=== PATIENT | female | born 1960 | race Caucasian/White ===

== ENCOUNTER 2023-06-23 17:52 | Inpatient (IN) | payer MEDICARE, OTHER, SELFPAY ==
[2023-06-23 17:57] VITALS: BP 161/74; PULSE 90; RESP 15; O2SAT 98
--- NOTE | 2023-06-23 18:01 | XRR_ITS ---
PROCEDURE INFORMATION: Exam: XR Abdomen Exam date and time: 06/23/2023 7:10 PM Age: 62 years old Clinical indication: Abdominal tenderness and nausea and vomiting; Patient HX: Ruq pain; N/v TECHNIQUE: Imaging protocol: Radiologic exam of the abdomen. Views: Frontal supine view of the abdomen. 1 View. COMPARISON: No relevant prior studies available. FINDINGS: Gastrointestinal tract: Normal. No bowel dilation. Bones/joints: Unremarkable. XR/XR abdomen 1V* [id number] IMPRESSION: Nonobstructive bowel-gas pattern.
--- NOTE | 2023-06-23 18:02 | ED_ITS ---
HPI - Abdominal Pain 2 General: Chief Complaint: Abdominal Pain Stated Complaint: abd pain Time Seen by Provider: 06/23/23 18:00 History of Present Illness: 62-year-old female presents emergency de partment with complaints of right upper quadrant abdominal pain with nausea. She states her pain started suddenly and was 10 out of 10 sharp and stabbing. She states this has occurred on 2 other occasions approximately 30 minutes after eating. She denies chest pain or shortness of breath. She states she was scheduled to have it evaluated tomorrow but the pain became so intense that she was unable to tolerate it and presented to the emergency department this evening. Associated Symptoms: Reports nausea Review of Systems 2 General: Reports: 10 or more systems reviewed and unremarkable except in HPI and below GI: Reports: abdominal pain and nausea Physical Exam 2 Narrative: EXAM NARRATIVE: Constitutional: the patient appears well nourished and with normal development. Vital signs reviewed as documented. HENMT: Normocephalic, atraumatic. Extermal ears with normal appearance without drainage. Nose without drainage, normal appearance. Mucus membranes moist. Neck is supple, No jugular venous distension, trachea is midline, no appreciable carotid bruits. No lymphadenopathy. No meningeal signs. Flexion, extension and lateral rotation is without pain. Eyes: Pupils are equal, round, reactive to light and accommodation. No scleral icterus. Extra-ocular movement are intact. Thorax is symmetrical and with equal rise and fall with respirations. Resp: Lungs are clear to auscultation. No wheezes, rales, crackles or ronchi at present. Cardio: Regular rate and rhythm. Positive S1, S2. No appreciable murmurs, rubs or gallops. GI: Abdominal exam reveals normal bowel sounds to all quadrants. No organomegaly. No obvious palpable masses noted. No hepatomegally appreciated. Soft, tender to palpation to the right upper quadrant Extremity: Extremities are non-edematous and both femoral and pedal pulses are 2+ and equal bilaterally. Moves all extremities well, sensation in all extremities. Neuro: Alert and oriented x4, person, place, time and situation. Cranial nerves II through XII are grossly intact, there is no focal neurological deficits that I can appreciate at present. Motor strength in the upper and lower extremities are equal and bilateral 5/5. Psych: Cooperative, calm, normal thought process, appropriate judgment. Skin: No lesions, rashes. No gross abnormalities noted. Back: Symmetrical, no obvious deformity, No CVA tenderness Course 2 Vital Signs: Vital signs: Vital Signs Pulse Rate 67 06/23/23 22:03 Respiratory Rate 16 06/23/23 22:03 Blood Pressure 161/74 06/23/23 17:57 Pulse Oximetry 98 06/23/23 22:03 Oxygen Delivery Me thod Room Air 06/23/23 17:57 MDM - Abdominal Pain Medical Decision Making Physical exam completed and documented, I will obtain laboratory evaluation to include a CBC, CMP, lipase, urinalysis, and a CT scan of the patient's abdomen pelvis to evaluate for possible differential diagnosis of bowel obstruction, incarcerated hernia, abdominal wall strain, abdominal wall hematoma, constipation. I will provide the patient IV access and IV fluid as well as a CT scan abdomen pelvis with contrast for evaluation for possible colitis, acute appendicitis, diverticulitis. I will provide IV antibiotics and consult surgery after reviewing her CT scan as it does appear she has acute cholecystitis Medical Records I reviewed the patient's medical records. Lab Data I reviewed the patient's lab results. 06/23/23 18:20 06/23/23 18:20 Labs/Radiology: Radiology Impressions Abdomen X-Ray 06/23/23 18:01 IMPRESSION: Nonobstructive bowel-gas pattern. Abdomen/Pelvis CT 06/23/23 22:31 IMPRESSION: 1. Gallbladder wall thickening with no gallbladder stones identified. Findings can be seen in the setting acute cholecystitis. Consider right upper quadrant ultrasound for further evaluation. 2. Complex 2.2 cm cystic structure in the inferior pole of the right kidney which is incompletely assessed on this examination. Consider three-phase renal CT or renal MRI for further evaluation. 3. No bowel obstruction or inflammatory process associated with the bowel. 4. No free air or significant free fluid in the abdomen or pelvis. 5. The appendix images normally. Laboratory Results WBC 8.61 10^3/uL (3.29-11.43) 06/23/23 18:20 RBC 4.88 10^6/uL (3.85-5.65) 06/23/23 18:20 Hgb 15.30 g/dL (11.27-16.99) 06/23/23 18:20 Hct 47.8 % (36-47) H 06/23/23 18:20 MCV 98.0 fl (85-98) 12/17/23 18:20 MCH 31.4 pg (27-33) 06/23/23 18:20 MCHC 32.0 g/dL (30-55) 06/23/23 18:20 RDW 13.5 % (12.1-15.1) 06/23/23 18:20 Plt Count 173 10^3/cmm (157-399) 06/23/23 18:20 MPV 10.6 fL (7.4-10.4) H 06/23/23 18:20 Neut % (Auto) 77.8 % 06/23/23 18:20 Lymph % (Auto) 13.5 % 06/23/23 18:20 [place] % (Auto) 7.7 % 06/23/23 18:20 Eos % (Auto) 0.5 % 06/23/23 18:20 Baso % (Auto) 0.2 % 06/23/23 18:20 Neut # (Auto) 6.70 10^3/uL (1.8-7.7) 06/23/23 18:20 Lymph # (Auto) 1.2 10^3/uL (0.8-4.8) 06/23/23 18:20 [place] # (Auto) 0.7 10^3/uL (0.2-0.9) 06/23/23 18:20 Eos # (Auto) 0.0 10^3/uL (0.0-0.8) 06/23/23 18:20 Baso # (Auto) 0.0 10^3/uL (0.0-0.1) 06/23/23 18:20 Nucleated RBC % (auto) 0 % 06/23/23 18:20 Nucleated RBCs # 0.0 /100WBC 06/23/23 18:20 Sodium 138 mmol/L (136-145) 06/23/23 18:20 Potassium 3.5 mmol/L (3.5-5.1) 06/23/23 18:20 Chloride 101 mmol/L (98-107) 06/23/23 18:20 Carbon Dioxide 27 mmol/L (22-29) 06/23/23 18:20 Anion Gap 13.5 (5-19) 06/23/23 18:20 BUN 16 mg/dL (8-23) 06/23/23 18:20 Creatinine 0.6 mg/dL (0.5-0.9) 06/23/23 18:20 GFR Calculation 101.3 mL/min (90-130) 06/23/23 18:20 Glucose 123 mg/dL (65-115) H 06/23/23 18:20 Calculated Osmolality 289 mOsm/kg (285-295) 06/23/23 18:20 Calcium 9.5 mg/dL (8.5-10.5) 06/23/23 18:20 Total Bilirubin 1.5 mg/dL (0.15-1.2) H 06/23/23 18:20 AST 101 U/L (0-32) H 06/23/23 18:20 ALT 58 U/L (0-33) H 06/23/23 18:20 Alkaline Phosphatase 222 U/L (35-105) H 06/23/23 18:20 Total Protein 7.4 g/dL (6.6-8.7) 06/23/23 18:20 Albumin 3.6 g/dL (3.5-5.2) 06/23/23 18:20 Globulin 3.8 g/dL (1.3-4.6) 06/23/23 18:20 Lipase 20 U/L (13-60) 06/23/23 18:20 Urine Color Dark yellow (Yellow) 06/23/23 19:20 Urine Appearance Cloudy (CLEAR) A 06/23/23 19:20 Urine pH 5 (5-7) 06/23/23 19:20 Ur Specific [place] 1.025 (1.005-1.030) 06/23/23 19:20 Urine Protein Neg (Negative) 06/23/23 19:20 Urine Glucose (UA) Norm (Normal) 06/23/23 19:20 Urine Ketones 1+ (Negative) H 06/23/23 19:20 Urine Blood 2+ (Negative) H 06/23/23 19:20 Urine Nitrate Negative (Negative) 06/23/23 19:20 Urine Bilirubin 2+ (Negative) H 06/23/23 19:20 Urine Urobilinogen 4+ mg/dL (Negative) H 06/23/23 19:20 Ur Leukocyte Esterase Negative (Negative) 06/23/23 19:20 Urine RBC 0-4 /hpf (0-2) H 06/23/23 19:20 Urine WBC 0-4 /hpf (0-5) H 06/23/23 19:20 Ur Squamous Epith Cells 15-25 /hpf (0-5) H 06/23/23 19:20 Amorphous Sediment Not Reportable 06/23/23 19:20 Urine Bacteria 2+ /hpf (NONE) H 06/23/23 19:20 Urine Mucus 1+ /hpf 06/23/23 19:20 All radiology interpretation(s) finalized by discharge Discharge Plan Discharge Patient Disposition: Placed in Observation Clinical Impression: Acute cholecystitis Condition: Stable Prescriptions: No Action metoprolol succinate 25 mg tablet extended release 24 hr 12.5 mg PO DAILY alprazolam [Xanax] 0.25 mg tablet 0.25 mg PO DAILY PRN pantoprazole [Protonix] 40 mg tablet,delayed release (DR/EC) 40 mg PO DAILY Qty: 14 0RF ondansetron 4 mg tablet,disintegrating 4 mg PO Q8H PRN (Reason: nausea and vomiting) Qty: 20 0RF Referrals: Santana Agrawal DO [Referring] - Logan Woodward DO [Primary Care Provider] - Coding Level of Care Code ED Health Director for [facility]
[2023-06-23 18:32] LABS: Basophils % 0.2 %; Eosinophils % 0.5 %; Hematocrit 47.8 % (36-47); Lymphocytes # 1.2 10^3/uL (0.8-4.8); Lymphocytes % 13.5 %; Mean Corpuscular Hemoglobin 31.4 pg (27-33); Mean Platelet Volume 10.6 fL (7.4-10.4); Monocytes # 0.7 10^3/uL (0.2-0.9); Monocytes % 7.7 %; Neutrophils % 77.8 %; Nucleated Red Blood Cells % 0 %; Platelet Count 173 10^3/cmm (157-399); Red Blood Count 4.88 10^6/uL (3.85-5.65); Red Cell Distribution Width 13.5 % (12.1-15.1); White Blood Count 8.61 10^3/uL (3.29-11.43)
[2023-06-23 18:52] LABS: Alanine Aminotransferase 58 U/L (0-33); Albumin Level 3.6 g/dL (3.5-5.2); Alkaline Phosphatase 222 U/L (35-105); Anion Gap 13.5 (5-19); Aspartate Amino Transferase 101 U/L (0-32); Blood Urea Nitrogen 16 mg/dL (8-23); Calcium 9.5 mg/dL (8.5-10.5); Carbon Dioxide 27 mmol/L (22-29); Chloride 101 mmol/L (98-107); Creatinine Clr Calc Pharmacy 122.1013; Globulin 3.8 g/dL (1.3-4.6); Glomerular Filtration Rate 101.3 mL/min (90-130); Glucose 123 mg/dL (65-115); Lipase 20 U/L (13-60); Osmolality Calculated 289 mOsm/kg (285-295); Potassium 3.5 mmol/L (3.5-5.1); Sodium 138 mmol/L (136-145); Total Bilirubin 1.5 mg/dL (0.15-1.2); Total Protein 7.4 g/dL (6.6-8.7)
[2023-06-23 19:43] LABS: Add Urine Microscopic? YES; Bilirubin Urine 2+ (Negative); Blood Urine 2+ (Negative); Glucose Urine UA Norm (Normal); Ketones Urine 1+ (Negative); Leukocyte Esterase Urine Negative (Negative); Nitrate Urine Negative (Negative); Protein Urine Neg (Negative); Specific Gravity, Urine 1.025 (1.005-1.030); Urine Appearance Cloudy (CLEAR); Urine Color Dark Yellow (Yellow); Urobilinogen Urine 4+ mg/dL (Negative); pH Urine 5 (5-7)
[2023-06-23 19:45] LABS: Add Urine Culture? No; Bacteria Urine 2+ /hpf; Mucus Urine 1+ /hpf; RBC Urine 0-4 /hpf (0-2); Squamous Epithelial Cell Urine 15-25 /hpf (0-5); WBC Urine 0-4 /hpf (0-5)
[2023-06-23 22:03] VITALS: PULSE 67; RESP 16; O2SAT 98
--- NOTE | 2023-06-23 22:31 | CTR_ITS ---
PROCEDURE INFORMATION: Exam: CT Abdomen And Pelvis With Contrast Exam date and time: 06/23/2023 10:50 PM Age: 62 years old Clinical indication: Abdominal pain; Localized; Right upper quadrant (ruq); Patient HX: C/O ruq pain x 1 week; Additional info: Abd pain TECHNIQUE: Imaging protocol: Computed tomography of the abdomen and pelvis with contrast. Radiation optimization: All CT scans at this facility use at least one of these dose optimization techniques: automated exposure control; mA and/or kV adjustment per patient size (includes targeted exams where dose is matched to clinical indication); or iterative reconstruction. Contrast material: OMNI 350; Contrast volume: 100 ml; Contrast route: INTRAVENOUS (IV); REPORTING DATA: Count of CT and Cardiac NM exams in prior 12 months: This patient has received 0 known CTs and 0 known cardiac nuclear medicine studies in the 12 months prior to the current study. COMPARISON: CR (ABDOMEN, ) 06/23/2023 7:10 PM RADIATION DOSE METRICS: Total DLP (mGy-cm): 1147.66 FINDINGS: Liver: Normal. No mass. Gallbladder and bile ducts: Gallbladder wall thickening with no gallbladder stones identified. Pancreas: Normal. No ductal dilation. Spleen: Normal. No splenomegaly. Adrenal glands: Normal. No mass. Kidneys and ureters: Complex 2.2 cm cystic structure in the inferior pole of the right kidney which is incompletely assessed on this examination. Consider three-phase renal CT or renal MRI for further evaluation. Stomach and bowel: Unremarkable. No obstruction. No mucosal thickening. Appendix: No evidence of appendicitis. Intraperitoneal space: Unremarkable. No free air. No significant fluid collection. Vasculature: Unremarkable. No abdominal aortic aneurysm. Lymph nodes: Unremarkable. No enlarged lymph nodes. Urinary bladder: Unremarkable as visualized. Reproductive: Unremarkable as visualized. Bones/joints: Unremarkable. No acute fracture. Soft tissues: Unremarkable. CT/CT abdomen pelvis w con* [id number] IMPRESSION: 1. Gallbladder wall thickening with no gallbladder stones identified. Findings can be seen in the setting acute cholecystitis. Consider right upper quadrant ultrasound for further evaluation. 2. Complex 2.2 cm cystic structure in the inferior pole of the right kidney which is incompletely assessed on this examination. Consider three-phase renal CT or renal MRI for further evaluation. 3. No bowel obstruction or inflammatory process associated with the bowel. 4. No free air or significant free fluid in the abdomen or pelvis. 5. The appendix images normally.
[2023-06-23] MEDS: iohexol 350 mg/mL 500 mL Btl (per mL) IV (22:52)
[2023-06-23 23:19] VITALS: BP 123/75; PULSE 70; RESP 17; TEMP 36.8; O2SAT 93
[2023-06-23] MEDS: ketorolac 30 mg/mL INJ IVP (23:51)
[2023-06-23] MEDS: piperacillin-tazobactam 3.375 GM in sodium chloride 0.9% (plus) 50 ML IV (23:52)
[2023-06-24] VITALS (8 sets, daily range): BP systolic 118–165; BP diastolic 71–82; PULSE 56–70; RESP 15–17; TEMP 36.6–36.8; O2SAT 92–98; BMI 41.5; BMI 42.5
[2023-06-24] MEDS: lactated ringers 1,000 ML 100 ML IV ×2 (03:07→18:08)
[2023-06-24 04:02] LABS: Basophils % 0.2 %; Eosinophils # 0.1 10^3/uL (0.0-0.8); Eosinophils % 1.3 %; Hematocrit 40.7 % (36-47); Lymphocytes # 1.5 10^3/uL (0.8-4.8); Lymphocytes % 29.2 %; Mean Corpuscular HGB Conc 34.9 g/dL (30-55); Mean Corpuscular Hemoglobin 31.5 pg (27-33); Mean Corpuscular Volume 90.2 fl (85-98); Mean Platelet Volume 10.9 fL (7.4-10.4); Monocytes # 0.5 10^3/uL (0.2-0.9); Monocytes % 9.3 %; Neutrophils # 3.14 10^3/uL (1.8-7.7); Neutrophils % 59.6 %; Nucleated Red Blood Cells % 0 %; Platelet Count 177 10^3/cmm (157-399); Red Blood Count 4.51 10^6/uL (3.85-5.65); Red Cell Distribution Width 13.3 % (12.1-15.1); White Blood Count 5.27 10^3/uL (3.29-11.43)
[2023-06-24 04:23] LABS: Alanine Aminotransferase 260 U/L (0-33); Albumin Level 3.5 g/dL (3.5-5.2); Alkaline Phosphatase 283 U/L (35-105); Anion Gap 13.6 (5-19); Aspartate Amino Transferase 315 U/L (0-32); Blood Urea Nitrogen 16 mg/dL (8-23); Calcium 9.1 mg/dL (8.5-10.5); Carbon Dioxide 26 mmol/L (22-29); Chloride 101 mmol/L (98-107); Globulin 3.1 g/dL (1.3-4.6); Glucose 94 mg/dL (65-115); Osmolality Calculated 285 mOsm/kg (285-295); Potassium 3.6 mmol/L (3.5-5.1); Sodium 137 mmol/L (136-145); Total Bilirubin 2.4 mg/dL (0.15-1.2); Total Protein 6.6 g/dL (6.6-8.7)
[2023-06-24 05:53] LABS: Glucose Point of Care 89 mg/dL (70-110)
[2023-06-24] MEDS: ketorolac 30 mg/mL INJ 15 MG IVP ×3 (05:53→18:08)
--- NOTE | 2023-06-24 05:54 | US_ITS ---
WS: [id number] RIGHT UPPER QUADRANT ULTRASOUND HISTORY: Possible choledocolithiasis COMPARISON: CT 06/23/2023 Liver: 11.2 cm in length. Normal size liver and echogenicity. No bile duct dilatation or mass. Portal Vein: Normal hepatopetal flow with monophasic waveform. Gallbladder: Abnormal gallbladder. Diffuse gallbladder wall thickening measuring up to 1.2 cm. Stones and sludge within the gallbladder. CBD: 0.4 cm Pancreas: Normal size and echogenicity. Right kidney: 11.4 cm in length. Cystic mass described on recent CT is not identified on the ultrasou nd examination due to its posterior position in the body habitus of the patient. Aorta and IVC: Unremarkable abdominal aorta and IVC. No ascites. IMPRESSION: 1. Abnormal gallbladder. Diffuse gallbladder wall thickening with stones and sludge. 2. No choledocholithiasis. 3. Complex cystic mass described by CT in the RIGHT kidney is not identified by ultrasound. Recommend three-phase renal CT imaging or MRI.
--- NOTE | 2023-06-24 06:48 | P.HP_ITS ---
Providers/Chief Complaint 2 Admitting Physician: Isai Duran MD Primary Care Provider: Logan Woodward DO Chief Complaint: abd pain History of Present Illness Renee Lombardo is a 62 year old female who presented to the emergency room complaining of 5 to 7 days of right upper quadrant abdominal pain. She visited her primary care doctor on 1213 and was diagnosed with possible gastroenteritis versus cholelithiasis, since then the pain has been increasing and become more constant on the right upper quadrant. Upon arrival to the ED a CT scan of the abdomen was done which revealed possible acute acalculous cholecystitis. LFTs on arrival showed minimal elevation of the bilirubin and alkaline phosphatase but no evidence of ductal dilation on imaging. Review of Systems 2 Narrative: 10 point review of systems done and nega tive otherwise noted in HPI Medications/Allergies Home Medications Medication Instructions Recorded Confirmed Last Taken Type alprazolam 0.25 mg tablet (Xanax) 0.25 mg PO DAILY PRN 06/20/23 06/20/23 Unknown History metoprolol succinate 25 mg 12.5 mg PO DAILY 06/20/23 06/20/23 Unknown History tablet,extended release 24 hr ondansetron 4 mg disintegrating 4 mg PO Q8H PRN nausea and 06/20/23 06/20/23 Unknown Rx tablet vomiting #20 tabs pantoprazole 40 mg tablet,delayed 40 mg PO DAILY #14 tabs 06/20/23 06/20/23 Unknown Rx release (Protonix) Allergies Allergy/AdvReac Type Severity Reaction Status Date / Time codeine Allergy Severe ADR-Nausea Verified 06/20/23 17:03 Vitals/I&O/Wt Last Vital Signs Temp 98.0 F 06/24/23 03:11 Pulse 61 06/24/23 03:11 Resp 17 06/24/23 03:11 BP 118/73 06/24/23 03:11 Pulse Ox 93 06/24/23 03:11 O2 Del Method Room Air 06/24/23 03:11 06/23/23 06/23/23 06/24/23 14:59 22:59 06:59 Intake Total 50 / 50 Balance 50 / 50 Weight last 48 hrs Weight 255 lb 3.2 oz Weight 250 lb Weight 250 lb Physical Exam 2 Narrative: General : Patient is well developed , no acute distress, oriented x3 Head : Normal cephalic, a-traumatic. Nose : Mucous membranes are without erythema. Lungs : Equal chest rise bilaterally, no use of accessory muscles, trachea is midline. CV : Rate and rhythm are normal. Abdomen : Soft, mild to moderate tenderness in the right upper quadrant, no Chapa sign at this time. Extremities : No edema. Upper extremities are normal bilaterally. Back : non-tender to palpation, no CVA tenderness. Data 06/24/23 03:45 06/24/23 03:45 A&P Assessment and plan (1) Acute cholecystitis: (2) Elevated bilirubin: Plan This is a 62-year-old female who presented with possible acute cholecystitis, with clinical course of more than 5 days, I Explained to the patient after 72 hours the risks of primary surgery is increased due to inflammatory additions. This morning on my evaluation patient is much better her abdominal pain has almost completely resolved, we have discussed the possibility of nonoperative management with an interval cholecystectomy in 6 weeks. In addition laboratory workup this morning shows elevation of of the bilirubin and alk phos with an uptrend when compared to yesterday, therefore we will obtain an ultrasound of the right upper quadrant to evaluate ductal anatomy. If there is a suspicion for CBD stone we will obtain an MRCP and consultation to GI for possible ERCP. In the meantime patient will remain n.p.o. will plan to advance diet once clinical exam is complete improved. Attestations 2 Medical Necessity Statement*: Patient will likely stay 2 midnights for IV antibiotics and nonoperative management of acute cholecystitis. Coding Level of Care Code Acute Code for [facility] Diagnoses Acute cholecystitis K81.0 Elevated bilirubin R17
[2023-06-24] MEDS: metoprolol succinate ER (24 HR) 25 mg Tablet 12.5 MG PO (09:48)
[2023-06-24] MEDS: piperacillin-tazobactam 3.375 GM in sodium chloride 0.9% (plus) 50 ML IV ×2 (11:48→20:46)
[2023-06-24] MEDS: ALPRAZolam 0.5 mg Tablet PO (12:02)
--- NOTE | 2023-06-24 16:05 | P.MISC_ITS ---
Miscellaneous Note Purpose of Documentation: Update on patient care Note: Patient symptoms have resolved since admission. I discussed with the patient the possibility of doing interval cholecystectomy in 6 to 8 weeks after this hospital stay due to length of symptoms. Initially, patient was requesting to be sent home today, I have informed her that in my medical opinion she should at least receive 24 to 48 hours of IV antibiotics before transitioning to p.o. antibiotics. She is give the first dose of antibiotic this morning as she was refusing it. After discussion and patient reassurance she has decided to stay until tomorrow. ? Patient agrees with current treatment management, will stay overnight to receive antibiotics -Will advance to fat-free diet tomorrow morning -Monitor 1 more set of labs before she joanne hallman
[2023-06-24 17:38] LABS: Basophils % 0.3 %; Eosinophils # 0.1 10^3/uL (0.0-0.8); Eosinophils % 2.3 %; Hematocrit 42.1 % (36-47); Lymphocytes # 1.4 10^3/uL (0.8-4.8); Lymphocytes % 34.9 %; Mean Corpuscular HGB Conc 33.3 g/dL (30-55); Mean Corpuscular Hemoglobin 30.8 pg (27-33); Mean Corpuscular Volume 92.7 fl (85-98); Mean Platelet Volume 10.8 fL (7.4-10.4); Monocytes # 0.3 10^3/uL (0.2-0.9); Monocytes % 8.6 %; Neutrophils # 2.12 10^3/uL (1.8-7.7); Neutrophils % 53.6 %; Nucleated Red Blood Cells % 0 %; Platelet Count 190 10^3/cmm (157-399); Red Blood Count 4.54 10^6/uL (3.85-5.65); Red Cell Distribution Width 13.5 % (12.1-15.1); White Blood Count 3.95 10^3/uL (3.29-11.43)
[2023-06-24 17:47] LABS: Alanine Aminotransferase 326 U/L (0-33); Albumin Level 3.7 g/dL (3.5-5.2); Alkaline Phosphatase 266 U/L (35-105); Anion Gap 12.7 (5-19); Aspartate Amino Transferase 303 U/L (0-32); Blood Urea Nitrogen 17 mg/dL (8-23); Calcium 9.1 mg/dL (8.5-10.5); Carbon Dioxide 27 mmol/L (22-29); Chloride 102 mmol/L (98-107); Glomerular Filtration Rate 101.3 mL/min (90-130); Glucose 104 mg/dL (65-115); Osmolality Calculated 288 mOsm/kg (285-295); Potassium 3.7 mmol/L (3.5-5.1); Sodium 138 mmol/L (136-145); Total Bilirubin 2.2 mg/dL (0.15-1.2); Total Protein 6.7 g/dL (6.6-8.7)
[2023-06-25] MEDS: ketorolac 30 mg/mL INJ 15 MG IVP ×2 (00:19→05:40)
[2023-06-25 03:50] VITALS: BP 154/80; PULSE 56; RESP 16; TEMP 36.6; O2SAT 96
[2023-06-25] MEDS: piperacillin-tazobactam 3.375 GM in sodium chloride 0.9% (plus) 50 ML IV (04:55)
[2023-06-25 07:56] VITALS: BP 189/82; PULSE 58; RESP 17; TEMP 36.6; O2SAT 94
--- NOTE | 2023-06-25 07:59 | P.DS_ITS ---
Discharge Providers Date of Admission: 06/24/23 08:06 Date of Discharge: June 25, 2023 Attending Provider at Admission: Isai Duran MD Attending Provider at Discharge: Isai Duran MD Primary Care Provider: Logan Woodward DO Diagnoses at Discharge Discharge Diagnosis (1) Acute cholecystitis: Status: Acute (2) Elevated bilirubin: Status: Acute Reason for Visit Reason for Visit: abd pain Hospital Course Hospital Course Is a 62-year-old female who presented to the hospital complaining of right upper quadrant pain for about a week. Laboratory and imaging workup confirmed diagnosis of acute cholecystitis, due to chronicity of symptoms being outside of the colon 72-hour window for laparoscopic cholecystectomy we decided to proceed with nonoperative management. Patient was treated with antibiotics and low-fat diet, by hospital day 1, she was pain-free, tolerating low-fat diet and with downtrending LFTs. Patient will be discharged home to follow-up 14-day course o f antibiotics and she will return to my clinic to discuss the possibility of surgery in 2 weeks. Physical Exam Narrative: General : Patient is well developed , no acute distress, oriented x3 Head : Normal cephalic, a-traumatic. Nose : Mucous membranes are without erythema. Lungs : Equal chest rise bilaterally, no use of accessory muscles, trachea is midline. CV : Rate and rhythm are normal. Abdomen : Soft, ND, NT, no g/r/m Extremities : No edema. Upper extremities are normal bilaterally. Back : non-tender to palpation, no CVA tenderness. Discharge Data Studies Completed and Pending Completed Studies During Hospitalization Category Date Time Status CT abdomen pelvis w con* [id number] Stat Cat Scan 06/23/23 22:31 Completed XR abdomen 1V* [id number] Stat Exams 06/23/23 18:01 Completed US gall bladder [id number] Urgent Ultrasound 06/24/23 05:54 Completed Radiology Impressions Abdomen X-Ray 06/23/23 18:01 IMPRESSION: Nonobstructive bowel-gas pattern. Abdomen/Pelvis CT 06/23/23 22:31 IMPRESSION: 1. Gallbladder wall thickening with no gallbladder stones identified. Findings can be seen in the setting acute cholecystitis. Consider right upper quadrant ultrasound for further evaluation. 2. Complex 2.2 cm cystic structure in the inferior pole of the right kidney which is incompletely assessed on this examination. Consider three-phase renal CT or renal MRI for further evaluation. 3. No bowel obstruction or inflammatory process associated with the bowel. 4. No free air or significant free fluid in the abdomen or pelvis. 5. The appendix images normally. Laboratory Results WBC 3.95 10^3/uL (3.29-11.43) 06/24/23 16:56 RBC 4.54 10^6/uL (3.85-5.65) 06/24/23 16:56 Hgb 14.00 g/dL (11.27-16.99) 06/24/23 16:56 Hct 42.1 % (36-47) 06/24/23 16:56 MCV 92.7 fl (85-98) 06/24/23 16:56 MCH 30.8 pg (27-33) 06/24/23 16:56 MCHC 33.3 g/dL (30-55) 06/24/23 16:56 RDW 13.5 % (12.1-15.1) 06/24/23 16:56 Plt Count 190 10^3/cmm (157-399) 06/24/23 16:56 MPV 10.8 fL (7.4-10.4) H 06/24/23 16:56 Neut % (Auto) 53.6 % 06/24/23 16:56 Lymph % (Auto) 34.9 % 06/24/23 16:56 [place] % (Auto) 8.6 % 06/24/23 16:56 Eos % (Auto) 2.3 % 06/24/23 16:56 Baso % (Auto) 0.3 % 06/24/23 16:56 Neut # (Auto) 2.12 10^3/uL (1.8-7.7) 06/24/23 16:56 Lymph # (Auto) 1.4 10^3/uL (0.8-4.8) 06/24/23 16:56 [place] # (Auto) 0.3 10^3/uL (0.2-0.9) 06/24/23 16:56 Eos # (Auto) 0.1 10^3/uL (0.0-0.8) 06/24/23 16:56 Baso # (Auto) 0.0 10^3/uL (0.0-0.1) 06/24/23 16:56 Nucleated RBC % (auto) 0 % 06/24/23 16:56 Nucleated RBCs # 0.0 /100WBC 06/24/23 16:56 Sodium 138 mmol/L (136-145) 06/24/23 16:56 Potassium 3.7 mmol/L (3.5-5.1) 06/24/23 16:56 Chloride 102 mmol/L (98-107) 06/24/23 16:56 Carbon Dioxide 27 mmol/L (22-29) 06/24/23 16:56 Anion Gap 12.7 (5-19) 06/24/23 16:56 BUN 17 mg/dL (8-23) 06/24/23 16:56 Creatinine 0.6 mg/dL (0.5-0.9) 06/24/23 16:56 GFR Calculation 101.3 mL/min (90-130) 06/24/23 16:56 Glucose 104 mg/dL (65-115) 06/24/23 16:56 POC Glucose 89 mg/dL (70-110) 06/24/23 05:49 Calculated Osmolality 288 mOsm/kg (285-295) 06/24/23 16:56 Calcium 9.1 mg/dL (8.5-10.5) 06/24/23 16:56 Total Bilirubin 2.2 mg/dL (0.15-1.2) H 06/24/23 16:56 Direct Bilirubin 1.30 mg/dL (0.00-0.30) H 06/24/23 16:56 AST 303 U/L (0-32) H 06/24/23 16:56 ALT 326 U/L (0-33) H 06/24/23 16:56 Alkaline Phosphatase 266 U/L (35-105) H 06/24/23 16:56 Total Protein 6.7 g/dL (6.6-8.7) 06/24/23 16:56 Albumin 3.7 g/dL (3.5-5.2) 06/24/23 16:56 Globulin 3.0 g/dL (1.3-4.6) 06/24/23 16:56 Lipase 20 U/L (13-60) 06/23/23 18:20 Urine Color Dark yellow (Yellow) 06/23/23 19:20 Urine Appearance Cloudy (CLEAR) A 06/23/23 19:20 Urine pH 5 (5-7) 06/23/23 19:20 Ur Specific [place] 1.025 (1.005-1.030) 06/23/23 19:20 Urine Protein Neg (Negative) 06/23/23 19:20 Urine Glucose (UA) Norm (Normal) 06/23/23 19:20 Urine Ketones 1+ (Negative) H 06/23/23 19:20 Urine Blood 2+ (Negative) H 06/23/23 19:20 Urine Nitrate Negative (Negative) 06/23/23 19:20 Urine Bilirubin 2+ (Negative) H 06/23/23 19:20 Urine Urobilinogen 4+ mg/dL (Negative) H 06/23/23 19:20 Ur Leukocyte Esterase Negative (Negative) 06/23/23 19:20 Urine RBC 0-4 /hpf (0-2) H 06/23/23 19:20 Urine WBC 0-4 /hpf (0-5) H 06/23/23 19:20 Ur Squamous Epith Cells 15-25 /hpf (0-5) H 06/23/23 19:20 Amorphous Sediment Not Reportable 06/23/23 19:20 Urine Bacteria 2+ /hpf (NONE) H 06/23/23 19:20 Urine Mucus 1+ /hpf 06/23/23 19:20 Vitals Last Vital Signs Temp 97.9 F 06/25/23 07:56 Pulse 58 L 06/25/23 07:56 Resp 17 06/25/23 07:56 BP 189/82 06/25/23 07:56 Pulse Ox 94 06/25/23 07:56 O2 Del Method Room Air 06/25/23 03:50 Discharge Plan Discharge Patient Disposition: Home Condition: Stable Prescriptions: New amoxicillin-pot clavulanate 875-125 mg tablet 1 tab PO Q12H Qty: 20 0RF meloxicam 15 mg tablet 15 mg PO DAILY Qty: 10 0RF Continued metoprolol succinate 25 mg tablet extended release 24 hr 12.5 mg PO DAILY alprazolam [Xanax] 0.25 mg tablet 0.25 mg PO DAILY PRN (Reason: Anxiety) pantoprazole [Protonix] 40 mg tablet,delayed release (DR/EC) 40 mg PO DAILY Qty: 14 0RF ondansetron 4 mg tablet,disintegrating 4 mg PO Q8H PRN (Reason: nausea and vomiting) Qty: 20 0RF Discontinued ibuprofen 200 mg Tablet 400 mg PO Q6H PRN (Reason: Pain) Discharge Orders: Discharge Order (Routine); Ordered 06/25/23 Ordered By: Isai Duran Referrals: Santana Agrawal DO [Referring] - Logan Woodward DO [Primary Care Provider] - Isai Duran MD [Physician] - (2 weeks) Discharge Diet: Low Fat Discharge Activity: Resume usual activity Patient Instructions: Opioid Safety Activity Restrictions/Additional Instructions: Please return to the hospital if you experience severe abdominal pain, fever chills. Please continue to follow your low-fat diet, eat as lean as possible, have high intake of fluids especially water. Discharge Attestations Time Spent in Discharge Care*: less than 30 min Quality Metrics Clinical Quality Measures [ No reported AMI, CVA or VTE this stay] Coding Level of Care Code Acute Code for [facility] Diagnoses Acute cholecystitis K81.0 Elevated bilirubin R17
--- NOTE | 2023-06-25 09:18 | PC.CHAP ---
Pastoral Care Encounter/Spiritual Assessment Type of Contact [] Declined strategic communications manager visit [] Patient/Family/Request visit [] Outpatient visit [] Follow-up visit [] Physician referral [] Code/Alert [x] Routine visit [] Staff referral [] Actively dying [] Patient sleeping [x] Family support [] [] Out of room [] Palliative care [] [] Receiving care in room [] Pre-surgical visit [] Trauma [] Long length of stay [] ICU visit [] Other: Relational/Emotional Strength [x] Patient feels connected with others/family/visitors/staff [] Distress [] Loneliness/isolation [] Abandonment Spirituality of Patient [x] Person of Linette [] Attends Druze of their Linette [x] Believes in Prayer [] Reads Bible or Mu-Ism materials [] There are Spiritual issues to be addressed Drafter Seismograph Interventions [x] Prayer [x] Active listening [] Non-anxious presence [x] Spiritual/emotional support [] Crisis/trauma care [] Spiritual counseling [] Bereavement support [] Provided bereavement packet [] Provided Bible/devotional materials [] Provided toy/stuffed animal, coloring book to patient or family member [] Provided Communion [] Anointing/[place] [] Salvation [x] Completed spiritual assessment [] Other: Impact on Illness or Injury [] Angry [] Fearful [] Anxious [] Often cries [] Exhaustion [] Unable to work [] Unable to attend pentecostal [] Unable to walk/stand [] Unable to read [] Unable to drive [] Unable to eat/drink [] Unable to sleep [] Unable to be with family [] Patient intubated [] Other: Summary Time spent with patient 5 min
[2023-06-25] MEDS: metoprolol succinate ER (24 HR) 25 mg Tablet 12.5 MG PO (10:08)
[2023-06-25 10:32] VITALS: BP 189/82; PULSE 58; RESP 17; TEMP 36.6; O2SAT 94
== END 2023-06-25 10:35 | disposition home or self-care (01) | DRG 445 ==
LOC: ER 23:23 → MEDSURG 23:29
PROVIDERS: Admitting Provider Surgery; Emergency Provider Internal Medicine; PCP Family Medicine; Visit Provider Surgery
DX: K81.0 Acute cholecystitis (principal); R17 Unspecified jaundice
CPT/HCPCS: 36415; 36416; 74018; 74177; 76705; 80048; 80053; 80076; 81001; 82962; 83690; 85025; 96365; 96375; 99285; G0378; J1885; J2543; J7120; Q9967

== ENCOUNTER → 2023-07-02 09:07 | Outpatient (BNVA) | payer MEDICARE, OTHER, SELFPAY | PROVIDERS: PCP Family Medicine; Visit Provider Surgery | DX: R10.9 Unspecified abdominal pain (principal); Z09 Encounter for follow-up examination after completed treatment for conditions other than malignant neoplasm | CPT/HCPCS: 99204; 99213 ==

== ENCOUNTER 2023-08-12 05:42 | Day surgery (SDC) | payer MEDICARE, OTHER, SELFPAY ==
[2023-08-12] VITALS (10 sets, daily range): BP systolic 107–158; BP diastolic 61–119; PULSE 83–102; RESP 16–20; TEMP 36.1–36.3; O2SAT 91–96
[2023-08-12] MEDS: scopolamine 1.5 Patch 1 PATCH TRANSDERMA (06:23)
[2023-08-12] MEDS: sodium chloride 0.9% 1,000 ML 30 ML IV (06:24)
--- NOTE | 2023-08-12 06:29 | W.PM.OPSFHP ---
Same Day Surgery H&P Indication for Procedure/HPI DATE OF PROCEDURE: August 12, 2023 CHIEF COMPLAINT/INDICATIONFOR SURGICAL PROCEDURE: history of acute cholecystitis PREOP DIAGNOSIS: history of acute cholecystitis PLANNED PROCEDURE: Operation Date: 08/12/23 07:00 Proposed Procedures p 84241 - Lap bear R10.9(Not Applicable) - Isai Duran MD Operation Date: 08/14/23 12:20 Proposed Procedures p [id number] - Lap bear R10.9(Not Applicable) - Isai Duran MD Medications/Allergies* Home Medications Medication Instructions Recorded Confirmed Type alprazolam 0.25 mg tablet (Xanax) 0.25 mg PO DAILY PRN Anxiety 06/20/23 08/09/23 History metoprolol succinate 25 mg 12.5 mg PO DAILY 06/20/23 08/09/23 History tablet,extended release 24 hr Allergies/Adverse Reactions Allergy/AdvReac Type Severity Reaction Status Date / Time codeine Allergy Severe ADR-Nausea Verified 08/12/23 06:02 Penicillins Allergy ADR-Itching Verified 08/12/23 06:02 Current Medications: Generic Name Dose Route Start Last Admin Trade Name Freq PRN Reason Stop Dose Admin Sodium Chloride 1,000 mls @ 30 mls/hr 08/12/23 06:00 08/12/23 06:24 Sodium Chloride 0.9% IV 08/13/23 05:59 30 mls/hr .Q24H HARIS Administration Pertinent Exam Findings alert, oriented x 3, clear to auscultation bilaterally and regular rate & rhythm Recommendations Surgery/Procedure today Coding Level of Care Code Acute Code for Chg Fwreji
--- NOTE | 2023-08-12 06:39 | ANES.PREANE2 ---
Pre-Anesthetic Assessment Height/Weight: Height 1.65 m Weight 107.501 kg Temp Pulse Resp BP Pulse Ox O2 Del Method 97 F L 102 H 20 H 158/119 93 Room Air 08/12/23 05:56 08/12/23 05:56 08/12/23 05:56 08/12/23 05:56 08/12/23 05:56 08/12/23 06:11 Preop Diagnosis: history of acute cholecystitis Operation Date: 08/12/23 07:00 Proposed Procedures p 95111 - Lap bear R10.9(Not Applicable) - Isai Duran MD Operation Date: 08/14/23 12:20 Proposed Procedures p [id number] - Lap bear R10.9(Not Applicable) - Isai Duran MD Familial anesthetic complications: None Was Beta Ernie taken within 24 hours: N/A Was Clonidine taken within 24 hours: N/A Last intake: Intake Last Liquid Date 08/11/23 Last Liquid Time 21:00 Last Solid Date 08/05/23 Last Solid Time 08:00 Social Tobacco and No alcohol Exam alert, oriented x 3, clear to auscultation bilaterally and regular rate & rhythm Airway Mallampati: Class II Dentition: other (missing) CV/HEM Hypertension Anesthetic Plan ASA status: 2 Anesthesia: General Risk of > 500 ml blood loss (7ml/kg in children): No Medications/Allergies Home Medications Medication Instructions Recorded Confirmed Last Taken Type alprazolam 0.25 mg tablet (Xanax) 0.25 mg PO DAILY PRN Anxiety 06/20/23 08/09/23 08/12/23 History metoprolol succinate 25 mg 12.5 mg PO DAILY 06/20/23 08/09/23 08/12/23 History tablet,extended release 24 hr ondansetron 4 mg disintegrating 4 mg PO Q8H PRN nausea and 06/20/23 08/12/23 08/09/23 Rx tablet vomiting #20 tabs pantoprazole 40 mg tablet,delayed 40 mg PO DAILY #14 tabs 06/20/23 08/09/23 08/12/23 Rx release (Protonix) Allergies Allergy/AdvReac Type Severity Reaction Status Date / Time codeine Allergy Severe ADR-Nausea Verified 08/12/23 06:02 Penicillins Allergy ADR-Itching Verified 08/12/23 06:02 Current Medications Generic Name Dose Route Start Last Admin Trade Name Freq PRN Reason Stop Dose Admin Sodium Chloride 1,000 mls @ 30 mls/hr 08/12/23 06:00 08/12/23 06:24 Sodium Chloride 0.9% IV 08/13/23 05:59 30 mls/hr .Q24H HARIS Administration Data Anesthesia Cardiac Studies: No Data to Display
[2023-08-12] MEDS: vancomycin 1,000 MG in sodium chloride 0.9% 250 ML 250 MG IV (06:50)
[2023-08-12] MEDS: lidocaine-epi 1% 20 mL INJ INJECTION (07:26)
[2023-08-12] MEDS: BUPivacaine 0.25% INJ 10 mL INJECTION (07:26)
--- NOTE | 2023-08-12 08:11 | PM.OP ---
Operative Report Date of procedure: August 12, 2023 Pre-op diagnosis: History of acute cholecystitis Post-op diagnosis: Same Post-op findings: Thickened gallbladder, normal cystic duct, cystic artery noted to be on Charly-lateral position Procedure done: Laparoscopic cholecystectomy. Specimens removed/disposition: Gallbladder Surgeon: Isai Duran MD Industrial Electrical Technician: [facility] OR staff Estimated blood loss: 5 Complications: none Brief History: Is a 63-year-old female who presents for interval cholecystectomy after recent episode of acute cholecystitis. All risk and benefits of the procedure were discussed and documented in my preop note. Procedure: Patient was brought into the OR. She was placed in a supine position. General esthesia was given. The abdomen was prepped and draped in the usual sterile fashion. Timeout was conducted. The abdomen was accessed in the left upper quadrant at the level of Fishman's point using Optiview, initial laparoscopy showed evidence of no visceral injury during entry. Additional trocars were placed at 12 mm in the supraumbilical position and 5 mm trocars in the epigastrium and right upper quadrant and right flank position. This was done under direct visualization. The gallbladder fundus was retracted on the cephalad direction. The infundibulum was then retracted on the inferolateral direction to open the hepatocystic triangle. I then proceeded to open the peritoneum anterior to hepatocystic triangle using electrocautery, this opening was carried on the medial and lateral direction to the edges of the liver and then on the sides of the gallbladder to allow better exposure. Careful blunt dissection of the hepatocystic triangle was done, the cystic duct and artery were encircled and the lower third of the gallbladder was removed from the liver bed thus creating a critical view of safety. The cystic artery was noted to be anterior and lateral in respect to the cystic duct. The artery and duct were double clipped proximally and single clipped distally and transected. The gallbladder was removed from the liver bed using electrocautery, after removal of the specimen adequate hemostasis was noted, clips were noted to be in place no evidence of bile leak was noted. Specimen was retrieved through the umbilical port site using an Endo Catch bag. The umbilical port site was then closed with 0 Vicryl using a Dougie-Wilson suture passer under direct visualization. The epigastric right upper quadrant and left upper quadrant ports were removed under direct visualization and the right flank port was used to evacuate the pneumoperitoneum and subsequently removed. The wounds were closed in layers using #4-0 Monocryl for the skin and Dermabond was applied. At the end of the procedure all counts were correct. Patient tolerated well the procedure, was extubated and transferred to the PACU in stable condition.
[2023-08-12] MEDS: TRAMadol 50 mg Tablet PO (10:15)
--- NOTE | 2023-08-12 10:20 | ANE.PACU2 ---
Inpatient post-anesthesia follow up: Airway intact: Yes Vital signs: Temperature 97.3 F Pulse Rate 83 Respiratory Rate 16 Blood Pressure 137/70 Pulse Oximetry 91 Oxygen Delivery Me thod Room Air Oxygen Flow Rate 3 Fraction of Inspir ed Oxygen Hydration adequate: Yes Nausea and vomiting: No Pain level: 1 Mental status: Baseline
== END 2023-08-12 10:21 | disposition home or self-care (01) ==
PROVIDERS: PCP Family Medicine; Visit Provider Surgery
PROC: 0FT44ZZ Resection of Gallbladder, Percutaneous Endoscopic Approach (ICD-10-PCS; CPT 47562; principal; 2023-08-12 07:00)
DX: K80.10 Calculus of gallbladder with chronic cholecystitis without obstruction (principal); I10 Essential (primary) hypertension
CPT/HCPCS: 47562; 88304; J1100; J1885; J2371; J2405; J2704; J2710; J3010; J3370; J3490; J7030; J7050

== ENCOUNTER → 2023-08-27 09:45 | Outpatient (BNVA) | payer MEDICARE, OTHER, SELFPAY | PROVIDERS: PCP Family Medicine; Visit Provider Surgery | DX: Z90.49 Acquired absence of other specified parts of digestive tract (principal); Z98.890 Other specified postprocedural states | CPT/HCPCS: 99024 ==